=== PATIENT | male | born 1970 | race Caucasian/White ===

== ENCOUNTER → 2019-03-15 | Outpatient (CLI) | payer OTHER ==
--- NOTE | 2019-03-15 18:33 | MR ---
EXAMINATION TYPE: MR brain wo/w con DATE OF EXAM: 03/15/2019 COMPARISON: None HISTORY: bilateral arm weakness CONTRAST: Performed utilizing 10 mL intravenous Gadavist gadolinium contrast. TECHNIQUE: Multiplanar, multiecho imaging on a 3.0 Marilee magnet is performed through the brain. Stud y is performed within 24 hours of arrival to the hospital. The craniovertebral junction is normal. The pituitary is normal. Diffusion-weighted imaging is performed. No abnormal hyperintensity is present to suggest an acute i ntracranial infarct or acute ischemic change. White matter changes are present bilaterally. Greater than 10 subcortical white matter changes within the bilateral cerebral hemispheres. These are predominantly within the subcortical white matter greater near the frontal region. These are also pr esent within the raygoza radiata bilaterally Largest lesion on the left 0.4 cm in the left frontal subcortical white matter. Series 501 image 22 The largest on the right is within the subcortical white matter frontal lobe measuring 0.4 cm, series 501 image 24. Ventricles and sulci are slightly prominent for the patient age. No abnormal enhancement is evident. IMPRESSIONS: 1. Multiple bilateral white matter changes are nonspecific. Microvascular ischemic change could be co nsidered. Migraine headaches be within the differential. Multiple sclerosis should be considered.
== END | disposition home or self-care (01) ==
LOC: RADMRIMAIN 14:04
PROVIDERS: ATTEND Family Medicine
DX: G43.909 Migraine, unspecified, not intractable, without status migrainosus (principal); R90.89 Other abnormal findings on diagnostic imaging of central nervous system
CPT/HCPCS: 70553; A9585

== ENCOUNTER 2021-02-20 17:57 | Emergency (ER) | payer OTHER ==
[2021-02-20] MEDS ORDERED: FLUORESCEIN STRIPS 1 MG STRIP RIGHT EYE ONE (20:26)
[2021-02-20] MEDS ORDERED: PROPARACAINE 0.5% OPHTH DROPS 15 ML BTL RIGHT EYE STA (20:27)
--- NOTE | 2021-02-20 21:18 | ED ---
Eye Problem HPI - General Chief complaint: Eye Problems Stated complaint: object in eye Time Seen by Provider: 02/20/21 20:19 Source: patient, RN notes reviewed Mode of arrival: ambulatory Limitations: no limitations - History of Present Illness Initial comments: Patient is a 50-year-old male that presents to the emergency department with a right eye foreign body sensation. He notes a prior to arrival his tried looking is oxygenating there. He notes that this alleviated some of the discomfort. He notes that it feels like he is in the superior aspect of his eye under his eyelid. Patient notes that he has had similar sensations in the past. Patient was otherwise well-appearing in no apparent distress or pain. He denied any issues or complaints. He denied chest pain shortness breath headache nausea vomiting diarrhea constipation fever fatigue chills. - Related Data Previous Rx's Medication Instructions Recorded Tobramycin [Tobrex 0.3% Ophth Soln] 1 drop BOTH EYES Q4HR #5 ml 02/20/21 Allergies Allergy/AdvReac Type Severity Reaction Status Date / Time No Known Allergies Allergy Verified 02/20/21 18:58 Review of Systems ROS Statement: Those systems with pertinent positive or pertinent negative responses have been documented in the HPI. ROS Other: All systems not noted in ROS Statement are negative. Past Medical History Past Medical History: No Reported History History of Any Multi-Drug Resistant Organisms: None Reported Past Surgical History: Adenoidectomy, Tonsillectomy Past Psychological History: No Psychological Hx Reported Smoking Status: Current every day smoker Past Alcohol Use History: None Reported Past Drug Use History: None Reported General Exam Limitations: no limitations General appearance: alert, in no apparent distress Head exam: Present: atraumatic, normocephalic, normal inspection Eye exam: Present: normal appearance, PERRL, EOMI, other (Eversion of eyelid did not demonstrate any foreign body to the inside the eyelid.). Absent: scleral icterus, conjunctival injection, periorbital swelling Expanded Eyelids: Normal Inspection: Right Pupils: Regular, Round: Bilateral, Reactive: Bilateral Sclera/Conjunctival: Normal Inspection: Right Anterior chamber: Normal Inspection: Bilateral ENT exam: Present: normal exam, mucous membranes moist Neck exam: Present: normal inspection Respiratory exam: Present: normal lung sounds bilaterally. Absent: respiratory distress, wheezes, rales, rhonchi, stridor Cardiovascular Exam: Present: regular rate, normal rhythm, normal heart sounds. Absent: systolic murmur, diastolic murmur, rubs, gallop, clicks Extremities exam: Present: normal inspection, full ROM, normal capillary refill. Absent: tenderness, pedal edema, joint swelling, calf tenderness Neurological exam: Present: alert, oriented X3 Psychiatric exam: Present: normal affect, normal mood Skin exam: Present: warm, dry, intact, normal color. Absent: rash Course Vital Signs 02/20/21 18:58 Temperature 97.5 F L Pulse Rate 66 Respiratory 18 Rate Blood Pressure 121/67 O2 Sat by Pulse 98 Oximetry Medical Decision Making - Medical Decision Making 50-year-old male complaining of right eye foreign body sensation. Upon physical exam there was no obvious foreign body in the anterior aspect of the eye or on lid eversion. flouroscene stain and with lamp exam did not demonstrate any obvious abrasions. Patient be sent eyedrops pharmacy. Case discussed with Dr. Stock, patient can discharge home. Disposition Clinical Impression: Corneal abrasion Disposition: HOME SELF-CARE Condition: Stable Instructions (If sedation given, give patient instructions): Eye Foreign Body (ED) Additional Instructions: Please return to the Emergency Department if symptoms worsen or any other concerns. Follow-up primary care 1-2 days. Follow-up with willow analyst as soon as possible. Use drops as prescribed. Is patient prescribed a controlled substance at d/c from ED?: No Referrals: Cuauhtemoc Farrar MD [Primary Care Provider] - 1-2 days Time of Disposition: 21:17
[2021-02-20 21:33] VITALS: BP 120/68; PULSE 60; RESP 20; TEMP 98
== END 2021-02-20 21:32 | disposition home or self-care (01) ==
LOC: EC 17:57
DX: S05.01XA Injury of conjunctiva and corneal abrasion without foreign body, right eye, initial encounter (principal); F17.200 Nicotine dependence, unspecified, uncomplicated; W45.8XXA Other foreign body or object entering through skin, initial encounter
CPT/HCPCS: 99283

== ENCOUNTER 2023-07-27 13:36 | Emergency (ER) | payer OTHER ==
[2023-07-27 14:21] VITALS: RESP 18
[2023-07-27] MEDS: DEXAMETHASONE SOD PHOSPHATE 10 MG/ML 1 ML VIAL IM STA (16:56)
[2023-07-27] MEDS: KETOROLAC 15 MG/ML 1 ML VIAL IM STA (16:56)
--- NOTE | 2023-07-27 17:11 | ED ---
Back Pain HPI - General Chief Complaint: Back Pain/Injury Stated Complaint: Low back pain Time Seen by Provider: 07/27/23 13:50 Source: patient, RN notes reviewed - History of Present Illness Initial Comments: 52-year-old male presenting with low back pain x 1 day. States he woke up yesterday morning with pressure in his lower back. Denies known injury or trauma. States pain is worse with standing and movement. Denies numbness and tingling of the legs, denies weakness of the legs, denies dysuria, urinary frequency, urinary urgency. Denies fever, weight loss. Denies blood thinners, kidney issues, gastric bleeds - Related Data Previous Rx's Medication Instructions Recorded Tobramycin [Tobrex 0.3% Ophth Soln] 1 drop BOTH EYES Q4HR #5 ml 02/20/21 Lidocaine 5% Patch [Lidoderm 5% 1 patch TOPICAL DAILY PRN 7 Days 07/27/23 Patch] #7 patch Allergies Allergy/AdvReac Type Severity Reaction Status Date / Time No Known Allergies Allergy Verified 07/27/23 14:20 Review of Systems ROS Statement: Those systems with pertinent positive or pertinent negative responses have been documented in the HPI. ROS Other: All systems not noted in ROS Statement are negative. Past Medical History Past Medical History: No Reported History Additional Past Medical History / Comment(s): acid reflux, fibromyaligia History of Any Multi-Drug Resistant Organisms: None Reported Past Surgical History: Adenoidectomy, Tonsillectomy Past Psychological History: No Psychological Hx Reported Smoking Status: Current every day smoker Past Alcohol Use History: None Reported Past Drug Use History: None Reported General Exam General appearance: alert, in no apparent distress Respiratory exam: Present: normal lung sounds bilaterally. Absent: respiratory distress, wheezes, rales, rhonchi, stridor Cardiovascular Exam: Present: regular rate, normal rhythm, normal heart sounds. Absent: systolic murmur, diastolic murmur, rubs, gallop, clicks GI/Abdominal exam: Present: soft, normal bowel sounds. Absent: distended, tenderness, guarding, rebound, rigid Back exam: Present: normal inspection, other. Absent: CVA tenderness (R), CVA tenderness (L), paraspinal tenderness (No point tenderness or paraspinal tenderness. Full range of motion and strength of bilateral hips. Full sensation and dorsalis pedis pulses bilaterally. no saddle anesthesia.) Neurological exam: Present: alert, oriented X3, CN II-XII intact Psychiatric exam: Present: normal affect, normal mood Skin exam: Present: warm, dry, intact, normal color. Absent: rash Course Vital Signs 07/27/23 07/27/23 14:15 17:50 Temperature 98.4 F 98.2 F Pulse Rate 78 64 Respiratory 18 18 Rate Blood Pressure 174/77 138/72 O2 Sat by Pulse 98 97 Oximetry Medical Decision Making - Medical Decision Making Was pt. sent in by a medical professional or institution (, PA, RN DERMATOLOGY, urgent care, hospital, or care home...) When possible be specific @ -No Did you speak to anyone other than the patient for history (EMS, parent, family, police, friend...)? What history was obtained from this source @ -No Did you review nursing and triage notes (agree or disagree)? Why? @ -I reviewed and agree with nursing and triage notes Were old charts reviewed (outside hosp., previous admission, EMS record, old EKG, old radiological studies, urgent care reports/EKG's, care home records)? Report findings @ -No old charts were reviewed Differential Diagnosis (chest pain, altered mental status, abdominal pain women, abdominal pain men, vaginal bleeding, weakness, fever, dyspnea, syncope, headache, dizziness, GI bleed, back pain, seizure, CVA, palpatations, mental health, musculoskeletal)? @ -Differential Musculoskeletal Muscular strain, contusion, ligament sprain, fracture, arthritis, septic arthritis, bursitis, cellulitis, muscle spasm, nerve compression, DVT, arterial occlusion, herpes zoster, electrolyte abnormality, tumor.... This is not meant to be in all inclusive list EKG interpreted by me (3pts min.). @ -None X-rays interpreted by me (1pt min.). @ -None done CT interpreted by me (1pt min.). @ -None done U/S interpreted by me (1pt. min.). @ -None done What testing was considered but not performed or refused? (CT, X-rays, U/S, labs)? Why? @ -X-ray not indicated at this time due to no red flag symptoms, no injury or trauma What meds were considered but not given or refused? Why? @ -None Did you discuss the management of the patient with other professionals (professionals i.e. Dr., PA, RN DERMATOLOGY, lab, RT, psych nurse, social work program coordinator, heel seat pounder, teacher, duty officer, shelter case manager)? Give summary @ -No Was smoking cessation discussed for >3mins.? @ -No Was critical care preformed (if so, how long)? @ -No Were there social determinants of health that impacted care today? How? (Homelessness, low income, unemployed, alcoholism, drug addiction, transportation, low edu. Level, literacy, decrease access to med. care, residential, rehab)? @ -No Was there de-escalation of care discussed even if they declined (Discuss DNR or withdrawal of care, Hospice)? DNR status @ -No What co-morbidities impacted this encounter? (DM, HTN, Smoking, COPD, CAD, Cancer, CVA, ARF, Chemo, Hep., AIDS, mental health diagnosis, sleep apnea, morbid obesity)? @ -None Was patient admitted / discharged? Hospital course, mention meds given and route, prescriptions, significant lab abnormalities, going to OR and other pertinent info. @ -Patient was discharged. Patient was seen and evaluated for low back pain. There are no red flag symptoms present. Patient was given Toradol and DEXA and reports pain is improved. Strict alarm symptoms discussed, return to ER if occur. Patient discharged in stable condition. Case discussed with Dr. Leigh Undiagnosed new problem with uncertain prognosis? @ -No Drug Therapy requiring intensive monitoring for toxicity (Heparin, Nitro, Insulin, Cardizem)? @ -No Were any procedures done? @ -No Diagnosis/symptom? @ -Low back strain Acute, or Chronic, or Acute on Chronic? @ -Acute Uncomplicated (without systemic symptoms) or Complicated (systemic symptoms)? @ -Uncomplicated Side effects of treatment? @ -No Exacerbation, Progression, or Severe Exacerbation? @ -No Poses a threat to life or bodily function? How? (Chest pain, [place], [place], pneumonia, PE, COPD, DKA, ARF, appy, cholecystitis, CVA, Diverticulitis, Homicidal, Suicidal, threat to staff... and all critical care pts) @ -No - Lab Data Lab Results 07/27/23 Range/Units 17:10 Urine Color Colorless Urine Appearance Clear (Clear) Urine pH 5.5 (5.0-8.0) Ur Specific Star 1.015 (1.001-1.035) Urine Protein Negative (Negative) Urine Glucose (UA) Negative (Negative) Urine Ketones Negative (Negative) Urine Blood Negative (Negative) Urine Nitrite Negative (Negative) Urine Bilirubin Negative (Negative) Urine Urobilinogen <2.0 (<2.0) mg/dL Ur Leukocyte Esterase Negative (Negative) Disposition Clinical Impression: Low back strain Disposition: HOME SELF-CARE Condition: Stable Instructions (If sedation given, give patient instructions): Acute Low Back Pain (ED) Additional Instructions: Please return to the Emergency Department if symptoms worsen or any other concerns. Prescriptions: Lidocaine 5% Patch [Lidoderm 5% Patch] 1 patch TOPICAL DAILY PRN 7 Days #7 patch PRN Reason: Pain Is patient prescribed a controlled substance at d/c from ED?: No Referrals: Cuauhtemoc Farrar MD [Primary Care Provider] - 1-2 days Time of Disposition: 17:55
[2023-07-27 17:14] LABS: Appearance,Urine Clear (Clear); Bilirubin,Urine Negative (Negative); Blood,Urine Negative (Negative); Color,Urine Colorless; Glucose,Urine (UA) Negative (Negative); Ketones,Urine Negative (Negative); Leukocyte Esterase,Urine Negative (Negative); Nitrite,Urine Negative (Negative); PH, Urine 5.5 (5.0-8.0); Protein,Urine Negative (Negative); Specific Gravity,Urine 1.015 (1.001-1.035); Urobilinogen,Urine <2.0 mg/dL (<2.0)
[2023-07-27 18:18] VITALS: BP 138/72; PULSE 64; TEMP 98.2
== END 2023-07-27 17:59 | disposition home or self-care (01) ==
LOC: EC 13:36
DX: M54.50 Low back pain, unspecified (principal); F17.200 Nicotine dependence, unspecified, uncomplicated
CPT/HCPCS: 81003; 99283; 96372 ×2; J1100; J1885